=== PATIENT | female | born 1980 | race Caucasian/White ===

== ENCOUNTER → 2016-09-17 | Outpatient (CLI) | payer OTHER ==
[~2016-09-17] MED LIST: ACET-1311 PO; AMOX500T3 PO; LEVO112T4 PO; PRED50TA PO; SPR28 PO
--- NOTE | 2016-09-17 09:10 | DIAGNOSTIC IMAGING REPORT ---
ABDOMEN LIMITED (US) CLINICAL HISTORY: VENTRAL HERNIA COMPARISON STUDY: None. FINDINGS: There is a fat-containing nonreducible ventral hernia either at or adjacent to the umbilicus. This measures 3.3 cm in size. The neck of the hernia measures 1.3 cm. IMPRESSION: Small fat-containing nonreducible ventral hernia either at or adjacent to the umbilicus. Electronically signed by: Alex Gallegos M.D. 09/17/2016 9:08 AM Dictated Date/Time: 09/17/2016 9:07 AM
== END | disposition home or self-care (01) ==
LOC: C.ULTR 07:58
PROVIDERS: ATTEND Family Medicine
DX: K43.9 Ventral hernia without obstruction or gangrene (principal)